=== PATIENT | male | born 1970 | race Caucasian/White ===

== ENCOUNTER → 2018-08-02 11:59 | Outpatient (CLI) | payer OTHER, SELFPAY ==
--- NOTE | 2018-08-02 11:59 | CYST_PTH ---
PATIENT: ZULEYKA DOLL LOC: [facility] U#:[id number] AGE/SX: 54/M ROOM: RE08/02/[address]: Dr. Jas Oliavs MD : 1970 BED: DIS: SPEC #: [id number] RECD: 08/05/18 15:10 STATUS: DONTA PRISCILA #: [id number] ALONZO: 08/02/18 11:[address]: Jas Olivas DEPT: SURGICAL PATHOLOGY RECD BY: Romulo Chavez ENTERED: 08/06/18 11:07 SP TYPE: Cyst OTHR DR: DMITRY Tissues: CYST Procedures: Surgery Specimen Level III HEADER OPERATION: Prepatellar bursectomy left knee PRE-OP DIAGNOSIS: Sebaceous cyst TISSUE SUBMITTED: Sebaceous cyst left knee MICROSCOPIC DIAGNOSIS Sebaceous cyst of left knee, excision: Epidermal inclusion cyst. AM:denny 08/07/18 MICROSCOPIC DESCRIPTION Slides are reviewed. GROSS DESCRIPTION Received is one container labeled with the patient's name and not further designated. The specimen consists of an ovoid white cystic structure measuring 2.5 x 2 x 1 cm. Sections reveal cheesy white cut surfaces. Vessel Ordinary Seaman sections are submitted in two cassettes. / AM:denny 08/06/18 TC:5 CPT: 85796
== END ==
LOC: LABSPEC 08-07 14:21
PROVIDERS: Referring Provider Specialist; Visit Provider Specialist
DX: L72.3 Sebaceous cyst (principal); M70.40 Prepatellar bursitis, unspecified knee
CPT/HCPCS: 88304

== ENCOUNTER 2024-02-03 10:47 | Emergency (ER) | payer BC, SELFPAY ==
[2024-02-03 10:48] VITALS: BP 129/88; PULSE 76; RESP 19; TEMP 35.8; O2SAT 98; BMI 32.3
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
--- NOTE | 2024-02-03 12:25 | RAD_ITS ---
HISTORY: r/o fracture with biceps tear. TECHNIQUE: XR Elbow Min 3 Views. COMPARISON: None. FINDINGS: BONES : No acute fracture identified. Mild lateral and medial epicondylar enthesopathy. Osteophyte of the olecranon process. JOINTS: No dislocation. Joint spaces maintained. SOFT TISSUES: Medial soft tissue swelling. RAD/Elbow min 3 Views IMPRESSION: No acute fracture or dislocation identified in the left elbow. Electronically Signed: Jacquelin Sanchez MD at 12:54 EDT ,
[2024-02-03 13:59] VITALS: BP 137/75; PULSE 65; RESP 16; TEMP 36.4; O2SAT 97
== END 2024-02-03 14:01 | disposition home or self-care (01) ==
PROVIDERS: Emergency Provider Surgery; Visit Provider Surgery
DX: S46.212A Strain of muscle, fascia and tendon of other parts of biceps, left arm, initial encounter (principal); F17.290 Nicotine dependence, other tobacco product, uncomplicated; X50.9XXA Other and unspecified overexertion or strenuous movements or postures, initial encounter
CPT/HCPCS: 73080; 99282